=== PATIENT | male | born 1990 | race Two or more races ===

== ENCOUNTER 2022-03-03 02:26 | Emergency (ER) | payer MEDICAID ==
[~2022-03-03] VITALS: Ht 188 cm; Wt 120.5 kg
[2022-03-03] MEDS ORDERED: SODIUM CHLORIDE 0.9% 1,000 ML IV ONE ×2 (03:15)
[2022-03-03] MEDS ORDERED: IOHEXOL 300 MG/ML 100ML BOTTLE IJ ONE (03:16)
[2022-03-03 10:00] VITALS: BP 133/78
[2022-03-03] MEDS ORDERED: DICL50TA2 PO (10:06)
[2022-03-03] MEDS ORDERED: BACI1OIN45 EX (10:06)
[2022-03-03] MEDS ORDERED: CEFD300C2 PO (10:06)
== END 2022-03-03 10:25 | disposition home or self-care (01) ==
LOC: ER 02:26
DX: S62.666A Nondisplaced fracture of distal phalanx of right little finger, initial encounter for closed fracture (principal); S00.12XA Contusion of left eyelid and periocular area, initial encounter; H57.89 Other specified disorders of eye and adnexa; Z79.899 Other long term (current) drug therapy; V29.99XA Rider (driver) (passenger) of other motorcycle injured in unspecified traffic accident, initial encounter; Y93.89 Activity, other specified; Y92.828 Other wilderness area as the place of occurrence of the external cause; Y99.8 Other external cause status
CPT/HCPCS: 29130; 70450; 70486; 71260; 72125; 73140; 73560; 74177; 96360; 99285; J7030; Q9967

== ENCOUNTER 2023-08-12 19:56 | Emergency (ER) | payer MEDICAID, OTHER ==
[~2023-08-12] VITALS: Ht 188 cm; Wt 107.2 kg
[~2023-08-12 19:56] MED LIST: BACI1OIN45 EX; CEFD300C2 PO; DICL50TA2 PO
[2023-08-12] MEDS ORDERED: IBUP-1455 PO (21:19)
[2023-08-12 21:25] VITALS: BP 105/65; PULSE 90; RESP 13; TEMP 98; O2SAT 97
== END 2023-08-12 21:55 | disposition home or self-care (01) ==
LOC: ER 19:56
DX: S60.222A Contusion of left hand, initial encounter (principal); S60.221A Contusion of right hand, initial encounter; Z88.1 Allergy status to other antibiotic agents; X58.XXXA Exposure to other specified factors, initial encounter; Y93.89 Activity, other specified; Y92.810 Car as the place of occurrence of the external cause; Y99.8 Other external cause status
CPT/HCPCS: 73130